=== PATIENT | male | born 1945 | race Caucasian/White ===

== ENCOUNTER 2021-06-20 10:22 | Outpatient (CLI) | payer MEDICARE, OTHER ==
[~2021-06-20] VITALS: Ht 177.8 cm; Wt 100.0 kg
[2021-06-20 10:27] VITALS: BP 154/78
[2021-06-20] MEDS ORDERED: EPINEPHrine INJECTION 1 MG/ML AMP IM PRN (10:30)
[2021-06-20] MEDS ORDERED: ONDANSETRON 4 MG/2 ML (SDV) Z0FRAN IV PRN (10:30)
[2021-06-20] MEDS ORDERED: diphenhydrAMINE 50 MG/ML INJ (BENADRYL) IV PRN (10:30)
[2021-06-20] MEDS ORDERED: ACETAMINOPHEN 500 MG TAB (TYLENOL) PO PRN (10:30)
[2021-06-20] MEDS ORDERED: CASIRIVIMAB/IMDEVIMAB 1,200 MG in NS (IVPB) 250 ML IV ONE (10:30)
[2021-06-20 11:59] VITALS: BP 146/79
== END 2021-06-20 11:56 | disposition home or self-care (01) ==
LOC: INFUSION 10:22
PROVIDERS: ATTEND Student in an Organized Health Care Education/Training Program
DX: U07.1 COVID-19 (principal)